=== PATIENT | male | born 1960 | race Caucasian/White ===

== ENCOUNTER 2016-11-18 17:47 | Emergency (ER) | payer MEDICAID ==
[~2016-11-18] VITALS: Ht 182.9 cm; Wt 93.9 kg
[2016-11-18 17:53] VITALS: BP_SYST 130
[2016-11-18] MEDS ORDERED: DIPHENHYDRAMINE HCL 25 MG CAPSULE PO ONE (19:00)
[2016-11-18 19:11] VITALS: BP_SYST 130
== END 2016-11-18 19:11 | disposition home or self-care (01) ==
LOC: SED 17:47
DX: H20.9 Unspecified iridocyclitis (principal); H10.9 Unspecified conjunctivitis; R03.0 Elevated blood-pressure reading, without diagnosis of hypertension; Z88.5 Allergy status to narcotic agent; Z88.6 Allergy status to analgesic agent
CPT/HCPCS: 99283; Q0163

== ENCOUNTER 2017-01-05 10:48 | Emergency (ER) | payer MEDICAID ==
[~2017-01-05] VITALS: Ht 180.3 cm; Wt 89.8 kg
[2017-01-05 10:48] VITALS: BP_SYST 127
== END 2017-01-05 11:06 | disposition left against medical advice (07) ==
LOC: SED 10:48
DX: M25.521 Pain in right elbow (principal); Z88.5 Allergy status to narcotic agent; Z88.6 Allergy status to analgesic agent; W10.9XXA Fall (on) (from) unspecified stairs and steps, initial encounter; Y93.01 Activity, walking, marching and hiking; Y92.89 Other specified places as the place of occurrence of the external cause; Y99.8 Other external cause status
CPT/HCPCS: 99281